=== PATIENT | female | born 1975 | race Caucasian/White ===

== ENCOUNTER 2021-08-27 09:39 | Emergency (ER) | payer OTHER ==
[2021-08-27] MEDS ORDERED: CORTISPORIN OTI10 ML EARLF (10:28)
== END 2021-08-27 10:36 | disposition home or self-care (01) ==
LOC: ER1 09:39
DX: H60.92 Unspecified otitis externa, left ear (principal)
CPT/HCPCS: 99282

== ENCOUNTER 2021-09-04 18:04 | Emergency (ER) | payer OTHER ==
[~2021-09-04 18:04] MED LIST: CORTISPORIN OTI10 ML EARLF
[2021-09-04 20:18] LABS: HEMOGLOBIN 13.7 gm/dl (12.3-15.3); RED BLOOD COUNT 4.31 M/UL (4.00-5.10); WHITE BLOOD COUNT 5.4 K/UL (4.5-11.0)
[2021-09-04 20:47] LABS: BUN/CREATININE RATIO 15 (0-10)
[2021-09-04] MEDS ORDERED: OMNICEF 300 MG300 MG PO (21:35)
[2021-09-04] MEDS ORDERED: IBUPROFEN600 MG PO (21:35)
[2021-09-04] MEDS ORDERED: ZOFRAN ODT 4 MG4 MG PO (21:35)
== END 2021-09-04 22:30 | disposition home or self-care (01) ==
LOC: ER1 18:04
PROVIDERS: Physician Assistant
DX: U07.1 COVID-19 (principal); J06.9 Acute upper respiratory infection, unspecified; J18.9 Pneumonia, unspecified organism; N39.0 Urinary tract infection, site not specified; E11.9 Type 2 diabetes mellitus without complications; I10 Essential (primary) hypertension; E78.5 Hyperlipidemia, unspecified; F17.210 Nicotine dependence, cigarettes, uncomplicated
CPT/HCPCS: 0240U; 71045; 80053; 81001; 83690; 83735; 85025; 86403; 87081; 87086; 87880; 93005; 96361; 96374; 96375; 99284; J0696; J1200; J1885; J2405

== ENCOUNTER 2021-09-09 15:10 | Emergency (ER) | payer OTHER ==
[~2021-09-09 15:10] MED LIST changes: +IBUPROFEN600 MG PO; +OMNICEF 300 MG300 MG PO; +ZOFRAN ODT 4 MG4 MG PO
== END 2021-09-09 19:29 | disposition home or self-care (01) ==
LOC: ER1 15:10
DX: U07.1 COVID-19 (principal); J12.82 Pneumonia due to coronavirus disease 2019; E11.9 Type 2 diabetes mellitus without complications; I10 Essential (primary) hypertension; F17.210 Nicotine dependence, cigarettes, uncomplicated; Z79.84 Long term (current) use of oral hypoglycemic drugs
CPT/HCPCS: 71046; 99283